=== PATIENT | female | born 1955 | race African-American/Black ===

== ENCOUNTER 2019-01-20 16:15 | Emergency (ER) | payer MEDICAID ==
[~2019-01-20] VITALS: Ht 175.3 cm; Wt 66.8 kg
[2019-01-20 16:17] VITALS: Ht 175.3 cm; Wt 66.8 kg
[2019-01-20] MEDS ORDERED: BAYER CHEWABLE81 MG PO (16:19)
[2019-01-20] MEDS ORDERED: LIPITOR40 MG PO (16:19)
[2019-01-20] MEDS ORDERED: CATAPRES0.1 MG PO (16:20)
[2019-01-20] MEDS ORDERED: COREG12.5 MG PO (16:20)
[2019-01-20] MEDS ORDERED: BRILINTA90 MG PO (16:20)
[2019-01-20] MEDS ORDERED: CYCLOBENZAPRINE10 MG PO (16:21)
[2019-01-20] MEDS ORDERED: CYMBALTA30 MG PO (16:21)
[2019-01-20] MEDS ORDERED: LASIX20 MG PO (16:22)
[2019-01-20] MEDS ORDERED: BENADRYL25 MG PO (16:22)
[2019-01-20] MEDS ORDERED: NEURONTIN 400400 MG PO (16:23)
[2019-01-20] MEDS ORDERED: LISINOPRIL5 MG PO (16:23)
[2019-01-20] MEDS ORDERED: LOPERAMIDE HCL2 MG PO (16:24)
[2019-01-20] MEDS ORDERED: GLUCOPHAGE1000 MG PO (16:24)
[2019-01-20] MEDS ORDERED: OMEPRAZOLE20 M1 PO (16:25)
[2019-01-20 19:06] LABS: BASOPHILS 0.1 % (0-2); EOSINOPHILS 3.9 % (0-7); HEMATOCRIT 34.7 % (36.0-48.0); HEMOGLOBIN 11.5 g/dL (12-16); IMMATURE GRANULOCYTES 0.4 % (0-5); LYMPHOCYTES 32.2 % (15-50); MCH 28.8 pg (26.0-34.0); MCHC 33.1 g/dL (31.0-37.0); MCV 86.8 fL (80.0-100.0); MEAN PLATELET VOLUME 9.7 fL (7.4-10.4); MONOCYTES 8.6 % (2-11); NEUTROPHILS 54.8 % (40-80); PLATELET COUNT 342 10x3/uL (130-400); RDW 12.8 % (11.5-14.5); WBC 7.9 10x3/uL (4.8-10.8)
[2019-01-20 19:17] LABS: ALBUMIN 3.4 g/dL (3.4-5.0); ALKALINE PHOSPHATASE 75 U/L (46-116); ALT (SGPT) 24 U/L (10-68); BILIRUBIN - TOTAL 0.29 mg/dL (0.2-1.3); CALC OSMOLALITY 284 mosm/kg (275-300); CARBON DIOXIDE 27.6 mmol/L (21.0-32.0); CHLORIDE - SERUM 102 mmol/L (98-107); CREATININE - SERUM 0.6 mg/dL (0.6-1.3); PROTEIN - SERUM 7.9 g/dL (6.4-8.2); SODIUM 141 mmol/L (136-145); UREA NITROGEN 14 mg/dL (7-18); eGFR NON AFRICAN AMERICAN > 90 mL/min (90-120)
[2019-01-20 19:18] LABS: GLUCOSE 161 mg/dL (74-106)
[2019-01-20 21:40] VITALS: BP 147/89
== END 2019-01-20 21:40 | disposition home or self-care (01) ==
LOC: D.ER 16:15
PROVIDERS: Emergency Medicine
DX: K52.9 Noninfective gastroenteritis and colitis, unspecified (principal); E11.9 Type 2 diabetes mellitus without complications; I10 Essential (primary) hypertension; Z86.73 Personal history of transient ischemic attack (TIA), and cerebral infarction without residual deficits